=== PATIENT | female | born 1995 | race African-American/Black ===

== ENCOUNTER 2017-06-08 13:21 | Emergency (ER) | payer OTHER ==
[2017-06-08 13:28] VITALS: RESP 16
--- NOTE | 2017-06-08 14:28 | EDPHY ---
H & P Time Seen by Provider: 06/08/17 14:04 HPI/ROS: CHIEF COMPLAINT: Constipation HISTORY OF PRESENT ILLNESS: This patient is a 21 y/o female complaining of constipation and rectal pain onset this morning. She is lactose intolerant, and often feels constipated. This morning, she had a small bowel movement at work, and then developed discomfort in her rectal area. She remained for 45 minutes with pain and sensation of a tight sphincter muscle She had the urge to have a bowel movement but was unable to. She visited her primary care physician, Dr. Fabiana Costa, who recommended she present to the emergency department for further evaluation. Her pain is currently around 5 or 6/10 in severity, but occasionally spikes to 10/10. She denies abdominal pain, vomiting, or other associated symptoms. REVIEW OF SYSTEMS: A 10 point review of systems was performed and is negative with the exception of the elements mentioned in the history of present illness. Past Medical/Surgical History: Denies. Social History: Works at [employer]. Significant other at bedside. Lives in [place]. Physical Exam: General Appearance: Alert, pleasant, does not appear in pain Eyes: Pupils equal and round, no conjunctival pallor or injection ENT, Mouth: Mucous membranes moist Neck: Normal inspection Respiratory: Lungs are clear to auscultation Cardiovascular: Regular rate and rhythm Gastrointestinal: Abdomen is soft and non-tender Rectal: Brown stool present, no fecal impaction Neurological: A&O, nonfocal, normal gait Skin: Warm and dry, no rash Extremities: Nontender, no pedal edema Psychiatric: Mood and affect normal Constitutional: Initial Vital Signs Temperature (C) 37 C 06/08/17 13:25 Heart Rate 97 06/08/17 13:25 Respiratory Rate 16 06/08/17 13:25 Blood Pressure 121/88 H 06/08/17 13:25 O2 Sat (%) 100 06/08/17 13:25 O2 Delivery Mode Room Air Allergies/Adverse Reactions: acetaminophen [From [place]] Allergy (Verified 06/08/17 13:29) hydrocodone [From [place]] Allergy (Verified 06/08/17 13:29) Home Medications: Medication Instructions Recorded NK [No Known Home Meds] 06/08/17 Medical Decision Making ED Course/Re-evaluation: 21 y/o female presents with constipation and rectal pain onset this morning. On rectal exam, stool noted on glove but no obstruction. Plan for Fleet's enema for symptom relief. 15:20 Reassessed patient. She had a large bowl movement following Fleet's enema and is feeling better. She had an additional enema administration. Following this, plan to discharge home in good condition. Abdomen is soft and nontender on discharge. Follow up and return precautions discussed. She is comfortable with this plan. Differential Diagnosis: Differential diagnosis includes though it is not limited to appendicitis, cholecystitis, diverticulitis, pyelonephritis, bowel perforation, small bowel obstruction. Departure - Departure Disposition: Home, Routine, Self-Care Clinical Impression: Constipation Qualifiers: Constipation type: unspecified constipation type Qualified Code(s): K59.00 - Constipation, unspecified Condition: Good Instructions: Constipation (ED), High Fiber Diet (ED) Additional Instructions: 1. Follow up with your primary care physician for further evaluation. 2. Stay well hydrated and follow a high-fiber diet to avoid future constipation. 3. Return to the emergency department for worsening abdominal pain, returning constipation unresolved at home, fever, uncontrollable vomiting or diarrhea, or other worsening of condition. Referrals: FABIANA COSTA [Primary Care Provider] - As per Instructions Stand Alone Forms: Work Excuse Report Scribed for: Evelyn Nolasco Report Scribed by: Marichuy Cardenas Date of Report: 06/08/17 Time of Report: 14:20 Physician Review and Approval Statement: 06/08/17 14:20 Portions of this note were transcribed by a medical apparatus model maker. I personally performed a history, physical exam, medical decision making, and confirmed accuracy of information the transcribed note.
--- NOTE | 2017-06-08 14:28 | EDPHY ---
H & P Time Seen by Provider: 06/08/17 14:04 HPI/ROS: CHIEF COMPLAINT: Constipation HISTORY OF PRESENT ILLNESS: This patient is a 21 y/o female complaining of constipation and rectal pain onset this morning. She is lactose intolerant, and often feels constipated. This morning, she had a small bowel movement at work, and then developed discomfort in her rectal area. She remained for 45 minutes with pain and sensation of a tight sphincter muscle She had the urge to have a bowel movement but was unable to. She visited her primary care physician, Dr. Fabiana Costa, who recommended she present to the emergency department for further evaluation. Her pain is currently around 5 or 6/10 in severity, but occasionally spikes to 10/10. She denies abdominal pain, vomiting, or other associated symptoms. REVIEW OF SYSTEMS: A 10 point review of systems was performed and is negative with the exception of the elements mentioned in the history of present illness. Past Medical/Surgical History: Denies. Social History: Works at [employer]. Significant other at bedside. Lives in [place]. Physical Exam: General Appearance: Alert, pleasant, does not appear in pain Eyes: Pupils equal and round, no conjunctival pallor or injection ENT, Mouth: Mucous membranes moist Neck: Normal inspection Respiratory: Lungs are clear to auscultation Cardiovascular: Regular rate and rhythm Gastrointestinal: Abdomen is soft and non-tender Rectal: Brown stool present, no fecal impaction Neurological: A&O, nonfocal, normal gait Skin: Warm and dry, no rash Extremities: Nontender, no pedal edema Psychiatric: Mood and affect normal Constitutional: Initial Vital Signs Temperature (C) 37 C 06/08/17 13:25 Heart Rate 97 06/08/17 13:25 Respiratory Rate 16 06/08/17 13:25 Blood Pressure 121/88 H 06/08/17 13:25 O2 Sat (%) 100 06/08/17 13:25 O2 Delivery Mode Room Air Allergies/Adverse Reactions: acetaminophen [From [place]] Allergy (Verified 06/08/17 13:29) hydrocodone [From [place]] Allergy (Verified 06/08/17 13:29) Home Medications: Medication Instructions Recorded NK [No Known Home Meds] 06/08/17 Medical Decision Making ED Course/Re-evaluation: 21 y/o female presents with constipation and rectal pain onset this morning. On rectal exam, stool noted on glove but no obstruction. Plan for Fleet's enema for symptom relief. 15:20 Reassessed patient. She had a large bowl movement following Fleet's enema and is feeling better. She had an additional enema administration. Following this, plan to discharge home in good condition. Abdomen is soft and nontender on discharge. Follow up and return precautions discussed. She is comfortable with this plan. Differential Diagnosis: Differential diagnosis includes though it is not limited to appendicitis, cholecystitis, diverticulitis, pyelonephritis, bowel perforation, small bowel obstruction. Departure - Departure Disposition: Home, Routine, Self-Care Clinical Impression: Constipation Qualifiers: Constipation type: unspecified constipation type Qualified Code(s): K59.00 - Constipation, unspecified Condition: Good Instructions: Constipation (ED), High Fiber Diet (ED) Additional Instructions: 1. Follow up with your primary care physician for further evaluation. 2. Stay well hydrated and follow a high-fiber diet to avoid future constipation. 3. Return to the emergency department for worsening abdominal pain, returning constipation unresolved at home, fever, uncontrollable vomiting or diarrhea, or other worsening of condition. Referrals: FABIANA COSTA [Primary Care Provider] - As per Instructions Stand Alone Forms: Work Excuse Report Scribed for: Evelyn Nolasco Report Scribed by: Marichuy Cardenas Date of Report: 06/08/17 Time of Report: 14:20 Physician Review and Approval Statement: 06/08/17 14:20 Portions of this note were transcribed by a registered medical assistant. I personally performed a history, physical exam, medical decision making, and confirmed accuracy of information the transcribed note.
[2017-06-08 16:02] VITALS: BP 110/60; PULSE 68; TEMP 98.1; O2SAT 99
== END 2017-06-08 16:02 | disposition home or self-care (01) ==
DX: K59.00 Constipation, unspecified (principal)